=== PATIENT | female | born 1935 ===

== ENCOUNTER → 2021-07-10 08:45 | Outpatient (CLI) | payer MEDICARE, OTHER, SELFPAY ==
[2021-07-10 14:13] LABS: COVID19 -Nasal RAPID Negative (Negative)
== END ==
PROVIDERS: Referring Provider Physician Assistant; Visit Provider Physician Assistant
DX: Z01.812 Encounter for preprocedural laboratory examination (principal); Z20.822 Contact with and (suspected) exposure to COVID-19
CPT/HCPCS: 87635

== ENCOUNTER → 2021-08-11 10:51 | Outpatient (CLI) | payer MEDICARE, OTHER, SELFPAY ==
[2021-08-11 13:03] LABS: COVID19 -Nasal RAPID Negative (Negative)
== END ==
PROVIDERS: Visit Provider Physician Assistant
DX: Z20.822 Contact with and (suspected) exposure to COVID-19 (principal)
CPT/HCPCS: 87635; C9803

== ENCOUNTER → 2021-08-14 08:45 | Outpatient (CLI) | payer MEDICARE, OTHER, SELFPAY ==
--- NOTE | 2021-08-14 17:55 | DI.NM.S_ITS ---
DATE OF SERVICE: 08/14/2021 PROCEDURE: Pharmacological perfusion study. INDICATION: Nonsustained ventricular tachycardia, hypertension. RADIOPHARMACEUTICAL: 26.8 millicurie technetium-99m Myoview IV was injected at stress and 10.6 millicurie technetium-99m Myoview IV was injected at rest. CARDIAC STRESS: The patient underwent IV Lexiscan perfusion study under the supervision of an attending staff using standard intravenous Lexiscan protocol. The patient remained hemodynamically stable. Post Lexiscan, she complained of stomach pain. Baseline rhythm was sinus. During stress, no convincing ischemic changes seen. No significant arrhythmias seen. RAW DATA: There is adequate myocardial uptake. GATED STUDY: Resting LV ejection fraction 93 percent and stress LV ejection fraction 100 percent with hyperdynamic LV. Resting end-diastolic volume 43 mL, which is low. TID ratio 0.78, which is within normal limits. Lung/heart ratio 0.28, which is within normal limits. MYOCARDIAL PERFUSION SCAN: There are no prone images, but stress supine and stress prone images. Stress supine and resting supine images were compared to each other. There is a normal myocardial perfusion. CONCLUSION: This is a normal myocardial perfusion study. Hyperdynamic left ventricular function, likely due to low end-diastolic volume. No wall motion abnormalities. No significant arrhythmias. Overall low-risk myocardial perfusion scan. Mary Carmen Purvis - Michelle/candi doc#: [id number]/job#: [id number] dd: 08/14/2021 12:40:00 dt: 08/14/2021 17:46:00 DICTATING /COPIES TO: Guanaco Smith MD COPIES MNE: MATT;
== END ==
PROVIDERS: Referring Provider Internal Medicine Cardiovascular Disease; Visit Provider Internal Medicine Cardiovascular Disease
DX: I47.2 Ventricular tachycardia (principal); I10 Essential (primary) hypertension
CPT/HCPCS: 78452; 93017; A9502; J2785